=== PATIENT | male | born 1990 | race Caucasian/White ===

== ENCOUNTER 2020-08-03 09:13 | Outpatient (REF) | payer OTHER, SELFPAY ==
[2020-08-03 12:22] LABS: Anion Gap 13 (12-20); Blood Urea Nitrogen 10 mg/dL (9-16); Calcium 8.9 mg/dL (8.4-10.2); Carbon Dioxide 27 mmol/L (22-29); Chloride 102 mmol/L (96-108); Cholesterol 171 mg/dL; Estimated Glomerular Filt Rate > 60; Glucose Random 80 mg/dL (60-115); HDL Cholesterol 62 mg/dL; LDL Cholesterol Calculated 97 mg/dl; Potassium 4.1 mmol/l (3.3-5.1); Sodium 138 mmol/L (135-145); Triglycerides 64 mg/dL
[2020-08-03 12:23] LABS: TSH reflex Free T4 1.34 mIU/mL (0.32-4.0)
[2020-08-09 11:36] LABS: Testosterone, Total 750 ng/dL (250-1100)
== END 2020-08-03 09:14 | disposition home or self-care (01) ==
LOC: HO.HMGCLDS 09:13
PROVIDERS: PCP Nurse Practitioner Family; Visit Provider Nurse Practitioner Family
DX: Z00.00 Encounter for general adult medical examination without abnormal findings (principal); R53.83 Other fatigue
CPT/HCPCS: 80048; 80061; 84403; 84443

== ENCOUNTER 2020-08-04 08:17 | Outpatient (REF) | payer OTHER, SELFPAY | END 2020-08-04 08:18 | disposition home or self-care (01) | LOC: HO.LAB 08:17 | PROVIDERS: Visit Provider Nurse Practitioner Family | DX: R53.83 Other fatigue (principal) | CPT/HCPCS: 82533 ==

== ENCOUNTER → 2020-10-09 08:35 | Outpatient (BNVA) | payer OTHER, SELFPAY | PROVIDERS: PCP Nurse Practitioner Family; Referring Provider Nurse Practitioner Family; Visit Provider Psychiatry & Neurology Neurology ==

== ENCOUNTER → 2020-11-05 20:23 | Outpatient (REF) | payer OTHER, SELFPAY | LOC: HO.SL 20:23 | PROVIDERS: Visit Provider Psychiatry & Neurology Neurology | DX: G47.19 Other hypersomnia (principal); G47.8 Other sleep disorders | CPT/HCPCS: 95810 ==

== ENCOUNTER → 2020-12-11 09:22 | Outpatient (BNVA) | payer OTHER, SELFPAY | PROVIDERS: PCP Nurse Practitioner Family; Visit Provider Psychiatry & Neurology Neurology ==

== ENCOUNTER → 2021-02-26 08:35 | Outpatient (BNVA) | payer OTHER, SELFPAY | PROVIDERS: PCP Nurse Practitioner Family; Visit Provider Nurse Practitioner Family ==

== ENCOUNTER 2021-06-10 11:18 | Outpatient (REF) | payer OTHER, SELFPAY ==
[2021-06-10 13:42] LABS: MANUAL DIFF FLAG NO
[2021-06-10 14:01] LABS: Basophils Percent Auto 0.7 % (0-2); Eosinophils Absolute Auto 0.2 X10*3/uL (0.0-0.4); Eosinophils Percent Auto 3.5 % (0-4); Hemoglobin 14.6 g/dl (14.0-18.0); Lymphocytes Absolute Auto 1.3 X10*3/uL (1.2-4.9); Lymphocytes Percent Auto 29.5 % (20-40); Mean Corpuscular Hemoglobin 28.4 pg (27.0-33.0); Mean Corpuscular Volume 83.7 fL (80-98); Mean Platelet Volume 9.5 fL (9.4-12.4); Monocytes Absolute Auto 0.3 X10*3/uL (0.1-1.2); Monocytes Percent Auto 7.3 % (2-11); Neutrophils Absolute Auto 2.7 X10*3/uL (2.0-8.3); Platelet Count 265 X10*3/uL (160-400); Red Blood Count 5.14 X10*6/uL (4.60-5.80); Red Cell Distribution Width 12.5 % (11.0-16.0); White Blood Count 4.5 X10*3/uL (4.8-10.8)
[2021-06-10 14:30] LABS: Alanine Aminotransferase 21 U/L (0-40); Albumin Level 4.6 g/dL (3.5-5.0); Alkaline Phosphatase 50 U/L (39-117); Anion Gap 15 (12-20); Aspartate Amino Transferase 17 U/L (5-37); Bilirubin Total 1.1 mg/dL (0.0-1.0); Blood Urea Nitrogen 9 mg/dL (9-16); Calcium 9.4 mg/dL (8.4-10.2); Carbon Dioxide 25 mmol/L (22-29); Chloride 104 mmol/L (96-108); Estimated Glomerular Filt Rate > 60; Glucose Random 89 mg/dL (60-115); Iron 128 mcg/dL (45-160); Magnesium 2.2 mg/dL (1.6-2.6); Percent Iron Saturation 39 % (15-50); Potassium 4.5 mmol/L (3.3-5.1); Sodium 139 mmol/L (135-145); Total Iron Binding Capacity 329 mcg/dL (228-428); Total Protein 7.2 g/dL (6.5-8.0); Unsaturated Iron Binding 201 ug/dL
[2021-06-10 14:44] LABS: Free T4 (Free Thyroxine) 0.96 ng/dL (0.71-1.85); Thyroid Stimulating Hormone 0.91 uIU/mL (0.32-4.0)
[2021-06-10 15:10] LABS: Folate 19.8 ng/mL (> or = 4.0); Vitamin B12 810 pg/mL (200-900)
[2021-06-10 15:18] LABS: Ferritin 69 ng/mL (20-250); T4 Thyroxine 6.7 ug/dL (4.5-12.0)
[2021-06-12 03:26] LABS: Triiodothyronine T3 Total 95 ng/dL (76-181)
[2021-06-12 13:36] LABS: Transferrin 263 mg/dL (188-341)
== END 2021-06-10 11:19 | disposition home or self-care (01) ==
LOC: HO.HMGCLDS 11:18
PROVIDERS: PCP Nurse Practitioner Family; Visit Provider Nurse Practitioner Family
DX: G25.81 Restless legs syndrome (principal); G47.61 Periodic limb movement disorder; R53.83 Other fatigue
CPT/HCPCS: 36415; 80053; 82607; 82728; 82746; 83540; 83735; 84436; 84439; 84443; 84466; 84480; 85025

== ENCOUNTER 2022-01-29 20:04 | Emergency (ER) | payer OTHER, SELFPAY ==
[2022-01-29 20:12] VITALS: BP 146/85; PULSE 97; RESP 18; TEMP 37.3; O2SAT 97; BMI 27.1
--- NOTE | 2022-01-29 21:02 | ED_ITS ---
HPI - Animal Bite General Chief Complaint: Animal Bite Stated Complaint: bit by squirrel Time Seen by Provider: 01/29/22 21:02 Source: patient Mode of arrival: ambulatory Limitations: no limitations History of Present Illness HPI narrative: Patient presents to the emergency department for evaluation after being bit by a squirrel to his right 2nd finger just prior to arrival. No active bleeding. No redness, no swelling, no warmth. Reports no up to date tetanus vaccine. MD complaint: animal bite Onset (ago): hour(s) Animal: squirrel Description of animal: unknown animal and wild animal Mechanism: bite Associated symptoms: none Treatments prior to arrival: irrigation Related Data Patient tetanus UTD: No Home Medications Medication Instructions Recorded Confirmed B-complex with vitamin C 1 cap PO DAILY 06/21/20 02/26/21 cholecalciferol (vitamin D3) 50 100 mcg PO DAILY cap 06/21/20 02/26/21 mcg (2,000 unit) capsule prazosin 2 mg capsule 4 mg PO BID 06/21/20 02/26/21 sertraline 100 mg tablet 100 mg PO BID tab 06/21/20 02/26/21 flu vac qv 2019(18yr up)rc(PF) IM 08/07/20 02/26/21 Previous Rx's Medication Instructions Recorded gabapentin 100 mg capsule 100 mg PO BEDTIME #30 cap 12/11/20 ropinirole 0.25 mg tablet 0.25 mg PO BEDTIME 30 Days #90 tab 02/26/21 amoxicillin 875 mg-potassium 1 tab PO Q12H 7 Days #14 tab 01/29/22 clavulanate 125 mg tablet Allergies Allergy/AdvReac Type Severity Reaction Status Date / Time No Known Allergies Allergy Mild NKA Unverified 05/31/20 16:02 ANTIBIOTICS Allergy Unknown SENSITIVITY Uncoded 01/28/12 00:00 APPLES Allergy Unknown Uncoded 01/28/12 00:00 CORN Allergy Unknown Uncoded 01/28/12 00:00 MILK Allergy Unknown Uncoded 01/28/12 00:00 PEANUT BUTTER Allergy Unknown Uncoded 01/28/12 00:00 Review of Systems Review of Systems: Skin: Positive animal bite Yes all other systems are reviewed and are negative PMFSH Past Medical History Attestation statement: The following information was validated with the patient. Source: old records reviewed Medical History Excessive cerumen in both ear canals History of repaired hypospadias Ruptured appendix Family History Family History Father No problems noted. Mother No problems noted. Social History Social History Alcohol intake: current Advance Directives: No Advance Directives Information Provided: No Physical Exam ED Vital Signs: Vital Signs - 24 hr 01/29/22 20:12 Temperature 99.1 F Pulse Rate 97 Respiratory Rate 18 Blood Pressure 146/85 H Pulse Oximetry 97 BMI result Body Mass Index 27.1 Vital signs have been reviewed as normal and appeared to be correct. Blood pressure normal.? Heart rate normal.? Respiration rate normal. Temperature normal.? Oxygen saturation normal. Appearance: Alert.?Oriented to person, place and time. No acute distress.?Normal affect. Eyes: Pupils equal, round and reactive to light.? Neck: Normal inspection.? Neck supple.?? CVS: Heart sounds normal. Normal heart rate and rhythm.? Pulses normal.?? Respiratory: No respiratory distress.? Lung sounds clear to auscultation bilaterally?? Abdomen: Soft and non-tender. ? Skin: Skin warm and dry.? Normal skin color.? Right 2nd digit lateral aspect on the radial side with two small puncture ojeda Extremities: No lower extremity edema.? Neuro: Moves all extremities spontaneously. Sensation intact bilaterally. No motor deficits Ambulates with normal steady gait. Course Course Course Narrative: Patient is a 31-year-old male with no significant past medical history presenting to emergency department for evaluation after being bitten on the finger by a squirrel. Patient cleansed the area initially, and applied a Band- Aid. There is no active bleeding. He is not up-to-date with his tetanus shot therefore will update. Discussed with patient that rabies vaccination is not required for squirrel bites. Discussed prophylactic treatment with antibiotics to prevent possible skin infection. Discussed reasons the patient to return back to the emergency department for further evaluation, advised outpatient follow-up with his primary care provider as needed. Discharge Plan Discharge Clinical Impression: Bite by animal Patient Disposition: Home, Self-Care Additional Instructions: You have been given a course of antibiotics to prevent infection, please complete this entire course. Your tetanus shot was updated today. As we discussed squirrels do not carry rabies therefore you do not need this vaccination. Return to the emergency department with any new or worsening symptoms or concerns. If you develop redness, swelling, warmth, drainage from the bite site or fevers or chills you should be re-evaluated. Please follow up with your primary care provider as needed. Prescriptions: New amoxicillin-pot clavulanate 875-125 mg tablet 1 tab PO Q12H 7 Days Qty: 14 0RF No Action sertraline 100 mg tablet 100 mg PO BID 0RF prazosin 2 mg capsule 4 mg PO BID 0RF cholecalciferol (vitamin D3) 50 mcg (2,000 unit) capsule 100 mcg PO DAILY 0RF B-complex with vitamin C Capsule 1 cap PO DAILY 0RF Flublok Quad 6543-1463 (PF) 180 mcg (45 mcg x 4)/0.5 mL syringe IM 0RF gabapentin 100 mg capsule 100 mg PO BEDTIME Qty: 30 3RF ropinirole 0.25 mg tablet 0.25 mg PO BEDTIME 30 Days Qty: 90 3RF Rx Instructions: 1-3 tabs prior bedtime Interventions: ED Discharge Assessment Last Done: 01/29/22 21:25 Discharge Date/Time: 01/29/22 21:29
[2022-01-29] MEDS: Diphth,Pertus(ACell),Tet Adult 0.5 ML SYRINGE IM (21:14)
== END 2022-01-29 21:29 | disposition home or self-care (01) ==
PROVIDERS: Emergency Provider Internal Medicine; PCP Nurse Practitioner Family
DX: S61.250A Open bite of right index finger without damage to nail, initial encounter (principal); W53.21XA Bitten by squirrel, initial encounter; Y93.9 Activity, unspecified; Y92.9 Unspecified place or not applicable; Y99.9 Unspecified external cause status
CPT/HCPCS: 90471; 90715; 99284

== ENCOUNTER 2024-11-10 14:10 | Outpatient (AMB) | payer OTHER, SELFPAY ==
[2024-11-10 14:12] VITALS: BP 150/92; PULSE 89; TEMP 36.6; O2SAT 98; BMI 26.7
--- NOTE | 2024-11-10 14:12 | MHC.PC.OV ---
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 Allergies No Known Allergies Allergy (Mild, Verified 11/10/24 14:13) NKA CORN Allergy (Mild, Uncoded 11/10/24 14:13) Unknown ANTIBIOTICS Allergy (Unknown, Uncoded 01/28/12 00:00) SENSITIVITY APPLES Allergy (Unknown, Uncoded 11/10/24 14:13) Unknown MILK Allergy (Unknown, Uncoded 11/10/24 14:13) Unknown PEANUT BUTTER Allergy (Unknown, Uncoded 11/10/24 14:13) Unknown Tobacco use date assessed: 11/10/24 Dental Screening Dental Screen Date: 11/10/24 Did you have a dental visit in the last 12 months?: Yes Did you have a dental problem in the last 6 months where you did not have access to dental care?: No Was dental information given to patient?: Patient has dentist HPI Annual PE HPI Details History of Present Illness The patient is a 34-year-old male presenting with gastrointestinal issues and a request for a specific referral. He has a long-standing history of irritable bowel syndrome (IBS), which presents as alternating constipation and diarrhea. Past consultations with a content strategy lead have occurred, but follow-up measures such as a colonoscopy have not been performed recently. He reports a family history of colon cancer on his father?s side, which heightens his concern. The patient denies any alarming symptoms such as hematochezia or unexplained weight loss. He also reports white coat syndrome and a tendency toward anxiety in clinical settings, but denies significant depressive symptoms or concerning thoughts. There is an absence of cardiopulmonary complaints. Health Maintenance - Referral for gastroenterology evaluation and potential colonoscopy due to family history of colon cancer. Social History Review of Systems - Gastrointestinal: Reports bloating, constipation, diarrhea; Denies blood in stool. - Neurological: Denies numbness, tingling. - Psychiatric: Denies depression, suicidal or homicidal ideation. - Cardiovascular/Respiratory: Denies chest pain, shortness of breath. Physical Exam General: Cooperative, healthy appearing, comfortable, no acute distress and well developed Orientation: Patient oriented x3 Limitations: No limitations Head: Normal to inspection Ears: Hearing grossly normal bilaterally, cerumen noted bilaterally Nose: Normal external nose present Face and sinus: Normal facial exam Eyes: Appearance normal, both eyes and all related structures Neck: Normal visual inspection and Yes full ROM Respiratory: Normal respiratory effort and able to speak in complete sentences. Clear to auscultation bilaterally Cardiovascular: Regular rate and rhythm. Normal S1 and S2 GI: Normal to inspection. Soft to palpation and nontender Skin: No rashes or lesions noted Neuro: Patient oriented x3 Extremities: Normal to inspection Results Plan I will arrange a referral for the patient to a content strategy lead given his gastrointestinal issues and notable family history of colon cancer. A detailed evaluation and probable colonoscopy will be discussed with the specialist to ensure preventative measures. Awareness of his white coat syndrome and anxiety has been acknowledged; ongoing management strategies will be devised as appropriate. Discussion Notes I discussed with the patient his ongoing gastrointestinal concerns stemming from a history of irritable bowel syndrome, as well as his request to see a specific content strategy lead associated with our practice. We outlined the potential need for a colonoscopy given his paternal family history of colon cancer and emphasized the importance of regular gastrointestinal monitoring. We discussed anxiety management techniques due to his white coat syndrome, outlining how these can assist in reducing medical visit-associated stress. Further evaluation and treatment plans will be coordinated with the specialist following the referral. Patient Instructions - Follow up with the provided referral to a content strategy lead for a comprehensive evaluation. - Consider techniques to manage anxiety, such as deep breathing or meditation, especially in medical settings. - Monitor for any new symptoms, such as blood in the stool or unresolved severe gastrointestinal pain, and seek care if these occur. - Keep a record of gastrointestinal symptoms to discuss with the specialist during your evaluation. [facility] Medical History Excessive cerumen in both ear canals Ruptured appendix History of repaired hypospadias Surgical History S/P appendectomy Family History Father Mental health problem Mother No problems noted. 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 1. Little interest or pleasure in doing things: not at all 2. Feeling down, depressed, or hopeless: not at all 3. Trouble falling or staying asleep, or sleeping too much: not at all 4. Feeling tired or having little energy: nearly every day 5. Poor appetite or overeating: not at all 6. Feeling bad about yourself - or that you are a failure or have let yourself or your family down: not at all 7. Trouble concentrating on things, such as reading the newspaper or watching television: nearly every day 8. Moving or speaking so slowly that other people could have noticed. Or the opposite - being so fidgety or restless that you have been moving around a lot more than usual: not at all 9. Thoughts that you would be better off or of hurting yourself in some way: not at all Total score: 6 Depression Screening Interpretation: Negative Depression Screening Done: Yes 14147 - PHQ-9 Billing: Yes Source: Developed by Drs. Alex Scott, Carmenza Barone, Justyn Bernstein and colleagues, with an educational heather from [employer]. Thrive Questionnaire Date Thrive assessed: 11/06/24 I am a: Patient What is your living situation today?: I have a steady place to live Within the past 12 months, did the food you bought not last and you didn't have the money to get more?: I choose not to answer this question Within the past 12 months, did you worry whether your food would run out before you got money to buy more?: I choose not to answer this question Do you have trouble paying for medicines?: No Do you have trouble getting transportation to medical appointments?: No Do you have trouble paying your heating and electricity bill?: I choose not to answer this question Do you have trouble taking care of your child, family member or friend?: No Do you have trouble with day-to-day activities such as bathing, preparing meals, shopping, managing finances, etc.?: No Are you currently unemployed and looking for a job?: No Are you interested in more education?: Yes Please select the resources that you would like help with: None Currently or been in a relationship where the following occur: No concerns reported THRIVE Score: 0 AUDIT C Alcohol Use Questionnaire (AUDIT-C) 1. How often do you have a drink containing alcohol?: Monthly or less 2. How many drinks containing alcohol do you have on a typical day when you are drinking?: 1 or 2 3. How often do you have six or more drinks on one occasion?: Never Total Score: 1 Score Reviewed/Action Taken: Yes ARELI-7 AMB Questionnaire ARELI-7 Date ARELI - 7 assessed: 11/10/24 Feeling nervous, anxious, or on edge: 3 = Nearly every day Not being able to stop or control worryin = More than half the days Worrying too much about different things: 2 = More than half the days Trouble relaxin = Nearly every day Being so restless that it is hard to sit still: 3 = Nearly every day Becoming easily annoyed or irritable: 0 = Not at all Feeling afraid as if something awful might happen: 1 = Several days Total ARELI-7 score (0-4 normal; 5-9 mild; 10-14 moderate; 15-21 severe): 14 Source: Developed by Drs. Alex Scott, Carmenza Barone, Justyn Bernstein and colleagues, with an educational heather from [employer]. ARELI-7 Assessment Billing ARELI-7 Assessment Tool: ARELI-7 Assessment 24169 Physical exam (Primary Care) Vital Signs: Last Vital Signs Temp 97.8 F 11/10/24 14:12 Pulse 89 11/10/24 14:12 BP 150/92 H 11/10/24 14:12 Pulse Ox 98 11/10/24 14:12 Oxygen Delivery Method Room Air 11/10/24 14:12 BMI result Body Mass Index 26.7 Tobacco/Smoking Status: Tobacco use Status Tobacco use date assessed 11/10/24 11/10/24 14:15 Patient Tobacco Use Status Never used Tobacco 11/10/24 14:15 e-Cigarette/Vaping Use Never Used 11/10/24 14:24 PHQ-9: PHQ-9 Score PHQ-9: Total score 6 11/10/24 14:24 Depression Screening Interpretation: Negative Thrive Assessment: Date of Thrive Assessment Date Thrive assessed 11/06/24 11/10/24 14:15 Currently or been in a relationship where the following occur: No concerns reported Coding Level of Care Code Est Pt Prev Care 18-39y(15755) Diagnoses Physical exam Z00. Bloating R14.0 Scalp irritation R23.8 Excessive cerumen in both ear canals H61.23 Additional Codes ARELI-7 Assessment Billing - ARELI-7 Assessment Tool: ARELI-7 Assessment 98276 ([id number]) PHQ-9 - 05069 - PHQ-9 Billing: Yes ([id number]) Assessment & Plan Assessment & Plan (1) Physical exam: Code(s): Z00.00 - Encounter for general adult medical examination without abnormal findings Category: Medical (2) Bloating: Code(s): R14.0 - Abdominal distension (gaseous) Category: Medical (3) Scalp irritation: Code(s): R23.8 - Other skin changes Category: Medical (4) Excessive cerumen in both ear canals: Code(s): H61.23 - Impacted cerumen, bilateral Category: Medical Plan . Orders: Orders TSH reflex Free T4 Today Z00.00 - Encounter for general adult medical examination without abnormal findings UA CC w/rflx Micro + Cult Today Z00.00 - Encounter for general adult medical examination without abnormal findings Lipid Panel Today Z00.00 - Encounter for general adult medical examination without abnormal findings Complete Blood Count Auto Diff Today Z00.00 - Encounter for general adult medical examination without abnormal findings Comprehensive [place]. Panel Fast Today Z00.00 - Encounter for general adult medical examination without abnormal findings Referrals Gastroenterology Referral R14.0 - Abdominal distension (gaseous) Dermatology Referral R23.8 - Other skin changes
== END 2024-11-10 15:34 | disposition home or self-care (01) ==
PROVIDERS: PCP Nurse Practitioner Family; Visit Provider Nurse Practitioner Family
DX: Z00.00 Encounter for general adult medical examination without abnormal findings (principal); R14.0 Abdominal distension (gaseous); R23.8 Other skin changes; H61.23 Impacted cerumen, bilateral

== ENCOUNTER → 2024-11-10 14:10 | Outpatient (BNVA) | payer OTHER, SELFPAY | PROVIDERS: PCP Nurse Practitioner Family; Visit Provider Nurse Practitioner Family | DX: Z00.00 Encounter for general adult medical examination without abnormal findings (principal); R14.0 Abdominal distension (gaseous); R23.8 Other skin changes; H61.23 Impacted cerumen, bilateral | CPT/HCPCS: 96127 ==

== ENCOUNTER 2025-01-14 08:33 | Outpatient (REF) | payer OTHER, SELFPAY ==
[2025-01-14 11:43] LABS: MANUAL DIFF FLAG NO
[2025-01-14 12:10] LABS: Basophils Percent Auto 0.8 % (0-2); Eosinophils Absolute Auto 0.2 X10*3/uL (0.0-0.4); Eosinophils Percent Auto 4.1 % (0-4); Hematocrit 43.7 % (42.0-52.0); Hemoglobin 14.8 g/dl (14.0-18.0); Imm Gran Abs Auto 0.01 X10*3/uL (0.00-0.03); Imm Gran Pct Auto 0.2 % (0.0-0.4); Lymphocytes Absolute Auto 1.3 X10*3/uL (1.2-4.9); Mean Corpuscular HGB Conc 33.9 g/dl (31.0-36.0); Mean Corpuscular Hemoglobin 28.2 pg (27.0-33.0); Mean Corpuscular Volume 83.4 fL (80.0-98.0); Mean Platelet Volume 9.7 fL (9.4-12.4); Monocytes Absolute Auto 0.4 X10*3/uL (0.1-1.2); Monocytes Percent Auto 7.9 % (2-11); Neutrophils Absolute Auto 2.9 x10*3/uL (2.0-8.3); Platelet Count 247 X10*3/uL (160-400); Red Blood Count 5.24 X10*6/uL (4.60-5.80); Red Cell Distribution Width 12.6 % (11.0-16.0); White Blood Count 4.8 X10*3/uL (4.8-10.8)
[2025-01-14 12:42] LABS: Alanine Aminotransferase 32 U/L (0-40); Albumin Level 4.4 g/dL (3.5-5.0); Anion Gap 10 (12-20); Aspartate Amino Transferase 43 U/L (5-37); Bilirubin Total 0.8 mg/dL (0.0-1.0); Blood Urea Nitrogen 10 mg/dL (9-16); Carbon Dioxide 28 mmol/L (22-29); Chloride 106 mmol/L (96-108); Cholesterol 186 mg/dL (<200); Estimated Glomerular Filt Rate > 60; Glucose Fasting 90 mg/dL (60-99); HDL Cholesterol 67 mg/dL (>40); LDL Cholesterol Calculated 106 mg/dL (<100); Potassium 3.8 mmol/L (3.3-5.1); Sodium 140 mmol/L (135-145); Total Protein 6.9 g/dL (6.5-8.0); Triglycerides 67 mg/dL (<150)
[2025-01-14 12:52] LABS: TSH reflex Free T4 1.41 uIU/mL (0.32-4.0)
[2025-01-14 13:11] LABS: Alkaline Phosphatase 51 U/L (39-117)
== END 2025-01-14 08:34 | disposition home or self-care (01) ==
LOC: HO.HMGCLDS 08:33
PROVIDERS: PCP Nurse Practitioner Family; Visit Provider Nurse Practitioner Family
DX: Z00.00 Encounter for general adult medical examination without abnormal findings (principal); Z13.6 Encounter for screening for cardiovascular disorders
CPT/HCPCS: 36415; 80053; 80061; 84443; 85025

== ENCOUNTER 2025-01-17 05:50 | Outpatient (REF) | payer OTHER, SELFPAY ==
[2025-01-17 10:13] LABS: Appearance Urine Clear; Color Urine Yellow; Glucose Urine UA Negative (Negative); Leukocyte Esterase Urine Negative (Negative); Nitrite Urine Negative (Negative); PH 7.5 (5.0-9.0); Urine Blood Negative (Negative); Urine Ketones Negative (Negative); Urine Protein Negative (Neg-Trace)
== END 2025-01-17 05:51 | disposition home or self-care (01) ==
LOC: HO.HMGCLNP 05:50
PROVIDERS: PCP Nurse Practitioner Family; Visit Provider Nurse Practitioner Family
DX: Z00.00 Encounter for general adult medical examination without abnormal findings (principal)
CPT/HCPCS: 81003

== ENCOUNTER 2025-02-08 12:54 | Outpatient (REF) | payer OTHER, SELFPAY ==
--- NOTE | ~2025-02-08 | US_ITS ---
CLINICAL HISTORY: R74.8 - Abnormal levels of other serum enzymes US Abdomen complete With portal and hepatic vein and kidney color Doppler Comparison: None Findings: The visualized pancreas is normal. The pancreas tail and uncinate process are obscured by bowel gas. The aorta and inferior vena cava are normal caliber The liver is normal in size measuring 17 cm. The liver echotexture is homogeneous. There is no intrahepatic bile duct dilatation. The common duct is 3.1mm in diameter The gallbladder is normal. Normal gallbladder wall thickness is 1.9 mm. There is no sonographic transducer Waldron sign The main portal vein is incompletely visualized. Hepatic veins are patent. The right kidney is normal, 12.7 cm in length The left kidney is normal, 10.5 cm in length. Kidney cortex echotexture is normal. Cortex thickness is normal, 1.5 cm The spleen is normal, 11.0cm in length No ascites. Impression: Normal complete abdominal ultrasound with poor visualization of the portal vein. This document has been electronically signed by: Jordy Powers MD on 02/08/2025 21:47:53
== END 2025-02-08 12:55 | disposition home or self-care (01) ==
LOC: HO.HMGCX 12:54
PROVIDERS: PCP Nurse Practitioner Family; Visit Provider Nurse Practitioner Family
DX: R74.8 Abnormal levels of other serum enzymes (principal)
CPT/HCPCS: 76700

== ENCOUNTER → 2025-02-08 13:00 | Outpatient (BNV) | payer OTHER, SELFPAY | PROVIDERS: PCP Nurse Practitioner Family; Visit Provider Radiology Diagnostic Radiology | DX: R74.01 Elevation of levels of liver transaminase levels (principal) | CPT/HCPCS: 76700 ==

== ENCOUNTER 2025-05-22 13:41 | Outpatient (AMB) | payer OTHER, SELFPAY ==
--- NOTE | 2025-05-22 14:04 | A.OFFVIS_ITS ---
Vital Signs 05/22/25 14:05 Height 6 ft Weight 198 lb 6.656 oz BMI 26.9 BP 121/87 Blood Pressure Location Lt brachial Position Sitting Pulse 88 Intake Visit Reasons: Abdominal distension l/s by Salvador 08/06/11 Intake Note: Shimon presents in the office as a new patient for abdominal distention. CC: Seen Salvador in 2010 - states that he has family history of colon cancer. He had a ruptured appendix years ago and has been dealing with his symptoms but he wants to have another check up. Last year and a half he has issues with bloating after eating. Has IBS symptoms. Dependency Case Manager Required: No Allergies No Known Allergies Allergy (Verified 05/22/25 14:06) HPI HPI Abdominal distension l/s by Salvador 08/06/11: Details: HPI 35 yr old m here for assessment Over last 1.5 yr worsening sx but he feels things really started after he had ruptured appendix 2007 he notes bloating is worse he denies vomiting, he has nausea he has diarrhea and constipatiion no rectal bleeding he can have urgency sometimes he has occ acid reflux, maybe worse with stress he takes sertraline for depression he takes occ nsaid he can have attacks of shaking and sweats, but once eats feels better ROS: Constitutional : No Weight loss, No Fever, No Chills ENT/Mouth : No sore throat, No Rhinorrhea Eyes: No Swelling, No Redness Cardiovascular : No Chest Pain, No SOB, No Edema Respiratory : No Cough, No Sputum, No Wheezing Gastrointestinal : see HPI Genitourinary : NO Dysuria, No Urinary Frequency, No Hematuria, No Urgency Musculoskeletal : + joint pain, No Myalgias, No Joint Swelling Skin : No Skin Lesions, No rash Neuro : No Weakness, No Numbness, No Dizziness, No Headache Psych : No Anxiety/Panic, + Depression Heme/Lymph: No Bruising, No Lymphadenopathy Endocrine : No Polyuria, No Polydipsia All other systems reviewed and are negative. Medical History Excessive cerumen in both ear canals Ruptured appendix History of repaired hypospadias Surgical History Hx of colonoscopy History of esophagogastroduodenoscopy (EGD) S/P appendectomy Family History Father Mental health problem Mother No problems noted. 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 VITAL SIGNS:see workflow HEENT: Nonicteric sclerae, PERRLA, EOMI. Oropharynx clear. Moist mucous membranes. Conjunctivae appear well perfused. No thyroid mass. CHEST: Chest wall is nontender. HEART: Regular rate and rhythm without murmurs. LUNGS: Clear to auscultation bilaterally. ABDOMEN: Soft, positive bowel sounds, nontender, no organomegaly.no flank tenderness SKIN: No rash, no excessive bruising, petechiae, or purpura. NEUROLOGIC: Cranial nerves II-XII intact without motor/sensory deficit. Psych: normal affect US --nml liver A/P: 1/ Abn bowel habit, and abdo discomfort --possibel dysmotility, or scar tissue, need to ro mass lesions, enteritis, colitis--keep insulinoma in mind but its rare PLAN: 1/ EGD and colo for further assessment [facility] Medical History Excessive cerumen in both ear canals Ruptured appendix History of repaired hypospadias Surgical History Hx of colonoscopy History of esophagogastroduodenoscopy (EGD) S/P appendectomy Family History Father Mental health problem Mother No problems noted. 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
[2025-05-22 14:05] VITALS: BP 121/87; PULSE 88; BMI 26.9
== END 2025-05-22 14:34 | disposition home or self-care (01) ==
LOC: HO.HGI 13:42
PROVIDERS: PCP Nurse Practitioner Family; Visit Provider Internal Medicine Gastroenterology
DX: R19.8 Other specified symptoms and signs involving the digestive system and abdomen (principal)
CPT/HCPCS: 99204

== ENCOUNTER 2025-07-20 07:34 | Day surgery (SDC) | payer OTHER, SELFPAY ==
--- NOTE | 2025-07-18 13:11 | HO.ANESPROP2 ---
Documented by User: Yajaira Adkins NP 07/18/25 13:12 HPI - Anesthesia Eval Consult details Narrative: 35yo M for Upper Endoscopy and Colonoscopy [facility] Active Problems Active Problems: All Active Problems Abnormal bowel habits (Acute) Elevated liver enzymes (Acute) Scalp irritation (Acute) Bloating (Acute) Cramps of lower extremity (Acute) Restless leg syndrome (Acute) Periodic limb movement disorder (PLMD) (Acute) Excessive daytime sleepiness (Acute) Abnormal REM sleep (Acute) Excessive cerumen in both ear canals (Acute) Low energy (Acute) Physical exam (Acute) Past Medical History Medical History Excessive cerumen in both ear canals Ruptured appendix History of repaired hypospadias Family History Family History Father Mental health problem Mother No problems noted. 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 [employer] Current occupational exposures/hazards: No Cognitive needs: No Hearing needs: No Vision needs: Yes Meds Allergies Allergy/AdvReac Type Severity Reaction Status Date / Time No Known Allergies Allergy Verified 05/22/25 14:06 Home Medications ?Medication ?Instructions ?Recorded ?Confirmed ?Last Taken ?Type B-complex with vitamin C 1 cap PO DAILY 06/21/20 07/18/25 Unknown History cholecalciferol (vitamin D3) 50 100 mcg PO DAILY 06/21/20 07/18/25 Unknown History mcg (2,000 unit) capsule magnesium gluconate 12.5 mg 200 mg PO DAILY 11/10/24 07/18/25 Unknown History magnesium (250 mg) tablet propranolol 10 mg tablet 10 mg PO BID PRN Anxiety 05/22/25 07/18/25 Unknown History sertraline 100 mg tablet 150 mg PO BID 05/22/25 07/18/25 Unknown History Assessment and Plan Assessment Anesthesia Assessment: Chart Reviewed Documented by User: Juliana Murcia MD 07/20/25 10:04 [facility] Past Medical History Medical History Excessive cerumen in both ear canals Ruptured appendix History of repaired hypospadias Family History Family History Father Mental health problem Mother No problems noted. 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 [employer] Current occupational exposures/hazards: No Cognitive needs: No Hearing needs: No Vision needs: Yes Meds Allergies Allergy/AdvReac Type Severity Reaction Status Date / Time No Known Allergies Allergy Verified 05/22/25 14:06 Home Medications ?Medication ?Instructions ?Recorded ?Confirmed ?Last Taken ?Type B-complex with vitamin C 1 cap PO DAILY 06/21/20 07/18/25 Unknown History cholecalciferol (vitamin D3) 50 100 mcg PO DAILY 06/21/20 07/18/25 Unknown History mcg (2,000 unit) capsule magnesium gluconate 12.5 mg 200 mg PO DAILY 11/10/24 07/18/25 Unknown History magnesium (250 mg) tablet propranolol 10 mg tablet 10 mg PO BID PRN Anxiety 05/22/25 07/18/25 Unknown History sertraline 100 mg tablet 150 mg PO BID 05/22/25 07/18/25 Unknown History Exam Airway Mallampati Class: II TM Dist: >3cm Neck ROM: Full Heart: rrr Lungs: cta Assessment and Plan Assessment Anesthesia Assessment: Anesthesia Plan Discussed Final Anesthetic Review Family History of Problems with Anesthesia: No History of Problems with Anesthesia: No NPO: Yes ASA Class: II (anxiety ++) Final Preanesthetic Review: No Changes in Pt Med Stat, Meds/Allgs Chart Reviewed, Consent Obtained/Reviewed and Anes Risks/Benef Reviewed Patient Risk: Low Procedure Risk: Low Anesthetic Plan Anesthetic Plan: MAC: Disposition: Standard PACU
[2025-07-18 14:38] VITALS: BMI 26.9
[2025-07-20] VITALS (8 sets, daily range): BP systolic 82–139; BP diastolic 43–82; PULSE 70–95; RESP 13–16; TEMP 36.6–36.8; O2SAT 96–100; BMI 27.2
[2025-07-20] MEDS: Lactated Ringers 1,000 ML 100 ML IVCONT (08:06)
--- NOTE | 2025-07-20 08:08 | P.HPSUR_ITS ---
Pre-Procedural Eval Section A - 24 Hr Update-Section A only Date of Service: 07/20/25 Section B - Complete if H&P > 30 days Chief Complaint: Other specified symptoms and signs involving the d Relevant Family History (Specify if Yes): No Relevant Social History: None Present Medications: see Short Stay Collaborative assessment Medical History: Significant History (Excessive cerumen in both ear canals Ru ptured appendix History of repaired hypospadias) History of Previous Operations: Relevant previous surgery/procedure and date(s) ( Hx of colonoscopy History of esophagogastroduodenoscopy (EGD) S/P appendectomy) Allergies: Allergies Allergy/AdvReac Type Severity Reaction Status Date / Time No Known Allergies Allergy Verified 05/22/25 14:06 Review of Systems Sugical H&P ROS: Negative: Constitution, Cardiovascular, Respiratory, Neurological, Psychiatric, Hem-Onc, Allergic/Immunologic, Gastrointestinal, Genitourinary, Musculoskeletal, Integumentary, Endocrine and Eyes/Ears/Nose/Throat Exam Surgical H&P Exam: Normal: HEENT, Normal: Heart, Normal: Lungs, Normal: Extremities, Normal: Abdomen, Normal: Skin and Normal: Neurological Plan Diagnosis/Plan: Unchanged I have reviewed the history and physical and performed a pertinent physical examination on my patient. No changes have occurred unless specified. Time Spent With Patient Time: Total time managing care of this patient today ____ minutes.
--- NOTE | 2025-07-20 09:21 | P.OPN-COLO_ITS ---
Colonoscopy Operative Note Operative Note Date of Service: 07/20/25 Narrative: Operative Information Procedure Description: EGD, Colonoscopy Indication: abdo pain, bloating, satiety Anesthesia: MAC FLEXIBLE TRANSORAL UPPER GASTROINTESTINAL ENDOSCOPY AND COLONOSCOPY PROCEDURE NOTE UPPER ENDOSCOPY Consent: Indications for the procedure and potential complications of bleeding, perforation, reaction to medications and missed diagnosis were discussed with the patient and informed consent was obtained. Instrument: Olympus GIF H 190 J mid size upper endoscope Monitoring: Vital signs and clinical assessment, continuous EKG monitoring, Pulse oximetry, Carbon Dioxide monitoring and blood pressure monitoring were done throughout the procedure. Procedure: The patient was placed in the left lateral decubitis position and pre-procedure medications were administered and a bite block was placed. The endoscope was inserted into the mouth and advanced under direct vision to the third part of duodenum. A careful inspection was made as the upper endoscope was withdrawn including a retroflexed examination of the proximal stomach; Findings and interventions are described below. Findings: Larynx:normal Esophagus: GE junction at 43 cm, diaphragm hiatus at 43 cm, lax LES, few erosive streaks noted - bx taken from GEJ, distal and proximal esophagus -also appeared to be reduced motility. Stomach: Normal mucosa. Biopsies were obtained. Grade 2 flap valve on retroflexed examination of the cardia. Pylorus was tight and stretched with wire guided balloon to 20 mm, no tears seen Duodenum: Normal bulb and descending duodenum, bx taken Intervention: Biopsies as noted above, COLONOSCOPY Instrument: Olympus variable stiffness pediatric scope 190L Colonoscopy Monitoring: Vital signs and clinical assessment, continuous EKG monitoring, Pulse oximetry, Carbon Dioxide monitoring and blood pressure monitoring were done throughout the procedure. Colon withdrawal time was 10 minutes. Procedure: The patient was placed in the left lateral decubitis position and pre-procedure medications were administered. After a digital rectal examination of the ano-rectum, the video colonoscope was inserted into the rectum and advanced through the colon to the cecum/TI. The colonoscope was slowly withdrawn in a retrograde panoramic fashion and the colon mucosa was carefully examined including a retroflexed view of the rectum. Findings and interventions are described below. Procedure Difficulty:moderate- tortuous colon Findings: Terminal Ileum-normal, bx taken bx taken from right and left colon, also seemed to be reduced motility of the colon Cecum:normal Ascending Colon: normal Transverse Colon -normal Descending Colon:normal Sigmoid Colon: normal Rectum: Retroflexion with small internal hemorrhoids, grade I Anorectum - normal Colon preparation: [place] Bowel Preparation Scale Right colon; 2 Transverse colon: 2 Left colon; 2 (0 = Unprepared colon segment with mucosa not seen due to solid stool that cannot be cleared. 1 = Portion of mucosa of the colon segment seen, but other areas of the colon segment not well seen due to staining, residual stool and/or opaque liquid. 2 = Minor amount of residual staining, small fragments of stool and/or opaque liquid, but mucosa of colon segment seen well. 3 = Entire mucosa of colon segment seen well with no residual staining, small fragments of stool or opaque liquid) Impression and Post Procedure Diagnosis: Endoscopy Findings: erosive esophagitis lax LES possible esophageal dysmotility Colonoscopy Findings: internal hemorrhoids possible colonic dysmotility Plan: Await Pathology results Repeat Colonoscopy in 10 years or earlier if clinically indicated High fiber diet leaflet avoid straining at stool, epsom salts and sitz bath, anusol supps or cream commence PPI if not taking Above findings were reviewed with the patient and relevant handouts were provided if indicated.
[2025-07-25 01:33] LABS: Lactase 36.3 (15.0-45.5); Maltase 234.0 (100.0-224.4); Palatinase 21.8 (5.0-26.3); Sucrase 77.8 (25.0-69.9)
== END 2025-07-20 11:00 | disposition home or self-care (01) ==
PROVIDERS: PCP Nurse Practitioner Family; Visit Provider Internal Medicine Gastroenterology
PROC: (CPT 45380; principal; 2025-07-20 09:10)
DX: R19.8 Other specified symptoms and signs involving the digestive system and abdomen (principal); R14.0 Abdominal distension (gaseous); R68.81 Early satiety; R10.9 Unspecified abdominal pain; K64.0 First degree hemorrhoids; K21.00 Gastro-esophageal reflux disease with esophagitis, without bleeding
CPT/HCPCS: 45380; 43239; 43245; 82657; 88305; 88313; 88342; C1726; J2003; J2704; J3010

== ENCOUNTER → 2025-07-20 07:34 | Outpatient (BNV) | payer OTHER, SELFPAY | PROVIDERS: PCP Nurse Practitioner Family; Visit Provider Internal Medicine Gastroenterology | DX: R10.9 Unspecified abdominal pain (principal); K20.90 Esophagitis, unspecified without bleeding; K22.4 Dyskinesia of esophagus; K31.1 Adult hypertrophic pyloric stenosis; K63.89 Other specified diseases of intestine; K64.0 First degree hemorrhoids | CPT/HCPCS: 43239; 43248; 45380 ==